=== PATIENT | female | born 1935 | race Caucasian/White ===

== ENCOUNTER 2018-11-21 07:09 | Emergency (ER) | payer MEDICARE, OTHER ==
[~2018-11-21] VITALS: Ht 162.6 cm; Wt 60.0 kg
--- NOTE | 2018-11-21 07:25 | NUR ---
patient arrives to the er with bilateral lower abdominal pain that began tuesday. she does not report nausea or vomiting, but has some diarrhea. she has had difficulty eating. some dizziness. placed on monitor, rails up, gowned, warm blanket.
[2018-11-21] MEDS ORDERED: ACETAMINOPHEN 325 MG TABLET ONE (07:47)
[2018-11-21] MEDS ORDERED: ACETAMINOPHEN 325 MG TABLET PO ONE (08:00)
[2018-11-21 08:22] LABS: BASOPHILS # (AUTO) 0.03 x10^3/uL (0-0.1); BASOPHILS % (AUTO) 0 % (0-1); EOSINOPHILS # (AUTO) 0.18 x10^3/uL (0-0.4); EOSINOPHILS % (AUTO) 1 % (1-7); LYMPHOCYTES # (AUTO) 1.81 x10^3/uL (1-3.4); LYMPHOCYTES % (AUTO) 13 % (22-44); MD NO; MEAN CORPUSCULAR HEMOGLOBIN 30.5 pg (27.0-34.8); MEAN CORPUSCULAR HGB CONC 33.4 g/dL (32.4-35.8); MEAN CORPUSCULAR VOLUME 91.3 fL (80-100); MEAN PLATELET VOLUME 8.5 fL (7.4-10.4); MONOCYTES # (AUTO) 0.89 x10^3/uL (0.2-0.8); MONOCYTES % (AUTO) 7 % (2-9); NEUTROPHILS # (AUTO) 10.72 x10^3/uL (1.8-6.8); NEUTROPHILS % (AUTO) 79 % (42-75); PLATELET COUNT 251 x10^3/uL (130-400); RED BLOOD COUNT 4.13 x10^6/uL (3.82-5.3); RED CELL DISTRIBUTION WIDTH 14.1 % (9.6-15.2)
[2018-11-21 08:30] LABS: ALBUMIN 3.5 g/dL (3.4-5.0); ANION GAP 9 mmol/L (5-15); CALCIUM 8.8 mg/dL (8.5-10.1); CHLORIDE 107 mmol/L (98-107)
--- NOTE | 2018-11-21 08:30 | NUR ---
walking patient to bathroom for second attempt to urinate. got her water and coffee to help. she is having some difficulties urinating, will cath if she can't go this time.
[2018-11-21 08:36] LABS: ALANINE AMINOTRANSFERASE 26 U/L (12-78); ALKALINE PHOSPHATASE 87 U/L (45-117); BILIRUBIN,TOTAL 0.7 mg/dL (0.2-1.0); CREATININE 1.05 mg/dL (0.55-1.02); TOTAL PROTEIN 7.1 g/dL (6.4-8.2); TROPONIN I < 0.015 ng/mL (0.000-0.045)
--- NOTE | 2018-11-21 08:37 | NUR ---
collected very small dark amount of urine and walked to lab.
[2018-11-21 08:43] LABS: RAPID INFLUENZA A Negative (Negative); RAPID INFLUENZA B Negative (Negative)
[2018-11-21 08:59] LABS: CULTURE INDICATED? YES; MICROSCOPIC INDICATED
--- NOTE | 2018-11-21 09:20 | NUR ---
patient in bed, awaiting ed workup.
[2018-11-21] MEDS ORDERED: CEFDINIR 300 MG CAPSULE PO ONE (09:30)
[2018-11-21] MEDS ORDERED: CEFDINIR 300 MG CAPSULE ONE (09:52)
--- NOTE | 2018-11-21 09:55 | NUR ---
discharge teaching reviewed, shows understanding. left with follow up instructions.
--- NOTE | 2018-11-21 10:01 | NUR ---
as patient was leaving for d/c she showed me her left leg that has also bothered her that she didn't mention earlier. it's swollen and pink generalized from knee down. Alerted TOPHER Durbin.
--- NOTE | 2018-11-21 10:38 | NUR ---
patient awaiting ultrasound of leg. she is calm and cooperative. patiets left leg is swollen and pink since this morning.
--- NOTE | 2018-11-21 10:59 | NUR ---
patient returned from ultrasound. awaiting results.
[2018-11-21] MEDS ORDERED: APIXABAN 5 MG TABLET PO ONE (11:00)
[2018-11-21] MEDS ORDERED: APIXABAN 5 MG TABLET ONE (11:04)
[2018-11-21 11:08] VITALS: BP 110/78
--- NOTE | 2018-11-21 11:09 | NUR ---
DISCHARGE TEACHING REVIEWED ON PATIENT FOR SECOND TIME/ISSUE DVT. PATIENT SHOWS UNDERSTANDING. UNDERSTANDS FOLLOW UP CARE.
== END 2018-11-21 11:24 | disposition home or self-care (01) ==
LOC: ED 10:11
DX: I82.412 Acute embolism and thrombosis of left femoral vein (principal); I82.432 Acute embolism and thrombosis of left popliteal vein; N30.00 Acute cystitis without hematuria
CPT/HCPCS: 36415; 71045; 80053; 81001; 84484; 85025; 87086; 87400; 93005; 99284

== ENCOUNTER 2019-06-14 12:14 | Outpatient (CLI) | payer MEDICARE, OTHER ==
[~2019-06-14 12:14] MED LIST: APIX5TAB PO
== END 2019-06-14 23:59 | disposition home or self-care (01) ==
LOC: RAD 12:14
PROVIDERS: ATTEND Otolaryngology
DX: H90.A32 Mixed conductive and sensorineural hearing loss, unilateral, left ear with restricted hearing on the contralateral side (principal); H65.22 Chronic serous otitis media, left ear; H70.12 Chronic mastoiditis, left ear
CPT/HCPCS: 70480

== ENCOUNTER 2019-06-18 14:56 | Outpatient (CLI) | payer MEDICARE, OTHER | END 2019-06-18 23:59 | disposition home or self-care (01) | LOC: CFH 14:56 | PROVIDERS: ATTEND Family Medicine | DX: I82.492 Acute embolism and thrombosis of other specified deep vein of left lower extremity (principal); F17.200 Nicotine dependence, unspecified, uncomplicated; Z80.9 Family history of malignant neoplasm, unspecified; Z88.2 Allergy status to sulfonamides; Z91.02 Food additives allergy status ==

== ENCOUNTER → 2019-10-04 | Outpatient (CLI) | payer MEDICARE, OTHER ==
[~2019-10-04] MED LIST changes: +GADOTERATE 7.5 MMOL/15 ML SYR ONE
== END | disposition home or self-care (01) ==
LOC: RAD 09:35 → EDBD 10:15
PROVIDERS: ATTEND Family Medicine
DX: H70.12 Chronic mastoiditis, left ear (principal); M86.8X8 Other osteomyelitis, other site; G31.9 Degenerative disease of nervous system, unspecified; M85.88 Other specified disorders of bone density and structure, other site
CPT/HCPCS: 70480; 70553; A9575